=== PATIENT | male | born 1955 ===

== ENCOUNTER → 2024-03-24 06:48 | Outpatient (CLI) | payer OTHER ==
[2024-03-24 08:09] LABS: HEMATOCRIT 41.3 % (39.0-48.0); HEMOGLOBIN 13.6 g/dL (13-16.00); MEAN CELL VOLUME 85.9 fL (80.0-100.00); MEAN CORPUSCULAR HEMOGLOBIN 28.3 pg (27.00-32.0); MEAN CORPUSCULAR HGB CONC 32.9 g/dl (32.0-36.0); PLATELET COUNT 436 K/uL (150-450); RED BLOOD COUNT 4.81 M/uL (4.00-6.00); RED CELL DISTRIBUTION WIDTH 13.9 % (11.5-14.5)
[2024-03-24 09:34] LABS: % SATURACION 11.6 % (20-50); ALBUMIN 3.5 gm/dL (3.4-5.0); BILIRUBIN TOTAL 0.3 mg/dL (0.3-1.2); CALCIUM 9.3 mg/dL (8.5-10.1); CREATININE SERUM 0.87 mg/dL (0.70-1.30); FERRITIN 22.9 NG/ML (26-388); GFR 87.26; GLOBULINA 4.1 G/DL (2.4-3.5); POTASSIUM 4.41 mEq/L (3.5-5.1); TOTAL PROTEIN 7.6 gm/dL (6.4-8.2)
[2024-03-24 10:58] LABS: FOLIC ACID > 20.00 ng/ml (4.78-20)
[2024-03-24 11:23] LABS: MANUAL PLATELET COUNT 448
[2024-03-24 11:25] LABS: PLATELET ESTIMATE NORMAL (NORMAL)
[2024-03-25 13:06] LABS: hgb a 97.4 % (96.4-98.8); hgb a2 2.6 % (1.8-3.2); hgb f 0 % (0.0-2.0); hgb s 0 % (0.0)
[2024-03-27 09:07] LABS: g6pd quant 247 (127-427); rbc 4.86 x10E6/uL (4.14-5.80)
[2024-03-28 15:06] LABS: PARIETAL CELL ANTIBODIES 23.2 Units (0.0-20.0)
== END | disposition home or self-care (01) ==
LOC: LAB 06:48
PROVIDERS: ATTEND Internal Medicine Hematology & Oncology
DX: D75.838 Other thrombocytosis (principal); E78.2 Mixed hyperlipidemia; Z86.010 Personal history of colon polyps; D50.8 Other iron deficiency anemias; R79.9 Abnormal finding of blood chemistry, unspecified; I10 Essential (primary) hypertension; R74.02 Elevation of levels of lactic acid dehydrogenase [LDH]; K76.89 Other specified diseases of liver; D63.8 Anemia in other chronic diseases classified elsewhere; D51.0 Vitamin B12 deficiency anemia due to intrinsic factor deficiency

== ENCOUNTER 2024-10-20 07:22 | Outpatient (CLI) | payer OTHER | END 2024-10-20 07:24 | disposition home or self-care (01) | LOC: SONOGRAMA 07:22 | PROVIDERS: ATTEND Pathology Anatomic Pathology & Clinical Pathology | DX: E04.2 Nontoxic multinodular goiter (principal) ==

== ENCOUNTER → 2025-02-11 06:26 | Outpatient (CLI) | payer OTHER ==
[2025-02-11 07:19] LABS: URINE APPEARANCE Clear; URINE BILIRRUBIN Negative (NEGATIVE); URINE BLOOD Negative; URINE COLOR Yellow; URINE GLUCOSE Negative (NEGATIVE); URINE KETONE Trace (NEGATIVE); URINE LEUKOCYTE Negative; URINE NITRATE Negative; URINE PROTEIN Negative (NEGATIVE); URINE UROBILINOGEN 0.2 E.U./dl
[2025-02-11 07:24] LABS: URINE BACTERIA 8.3 uL (0.0-1933); URINE RBC 5.1 uL (0.0-20.8); URINE WBC 3.8 uL (0.0-23.2)
[2025-02-11 07:25] LABS: BASO % 0.7 % (0.1-1.2); EOS # 0.10 (0.04-0.54); EOS % 1.8 % (0.7-7.0); LYMPH # 1.36 (1.18-3.74); LYMPH % 24.3 % (19.3-53.1); MEAN PLATELET VOLUME 9.90 fl (9.4-12.4); MONO # 0.35 (0.24-0.82); MONO % 6.3 % (4.7-12.5); NEUT # 3.74 (1.56-6.13); NEUT % 66.7 % (34.0-71.1); RED CELL DISTRIBUTION WIDTH 12.7 % (11.6-14.4)
[2025-02-11 07:28] LABS: URINE CAST 0.14 uL (0.0-1.40); URINE EPITHELIAL CELLS 0.9 uL (0.0-38.8)
[2025-02-11 08:14] LABS: ALT/SGPT 31.0 U/L (12-78); AST/SGOT 15.0 U/L (15-37); BILIRUBIN TOTAL 0.46 mg/dL (0.3-1.2); BUN CREA RATIO 18.0 (7.0-25.0); CREATININE SERUM 0.98 mg/dL (0.70-1.30); FE 62.0 ug/dl (65-175); GFR 75.83; GLOBULINA 4.4 G/DL (2.4-3.5); GLUCOSE FASTING 123.0 mg/dL (65-100); LDH 139.0 U/L (87-241); OSMOLALITY SERUM 283.0 MOSM/KG (275-295); PROSTATIC SPECIFIC ANTIGEN 1.65 NG/ML (0.010-4.00); T4 FREE 1.04 NG/ML (0.76-1.46); TSH 1.0 uIU/mL (0.358-3.74)
[2025-02-11 11:30] LABS: FOLIC ACID > 20.00 ng/ml (4.78-20)
[2025-02-12 09:08] LABS: ANTI THYROID PEROXIDASE 14 IU/mL (0-34)
[2025-02-13 15:35] LABS: LYMPHOCYTE MAN 20.0 %; MONOCYTE MAN 6.0 %; NEUTROPHILS MAN 71.0 %
== END | disposition home or self-care (01) ==
LOC: LAB 06:26
PROVIDERS: ATTEND Internal Medicine Hematology & Oncology
DX: D51.1 Vitamin B12 deficiency anemia due to selective vitamin B12 malabsorption with proteinuria (principal); D75.838 Other thrombocytosis; E78.2 Mixed hyperlipidemia; Z86.0100 Personal history of colon polyps, unspecified; R16.0 Hepatomegaly, not elsewhere classified; E04.2 Nontoxic multinodular goiter; Z80.0 Family history of malignant neoplasm of digestive organs; D50.8 Other iron deficiency anemias; R79.9 Abnormal finding of blood chemistry, unspecified; I10 Essential (primary) hypertension; R74.02 Elevation of levels of lactic acid dehydrogenase [LDH]; K76.89 Other specified diseases of liver; E03.8 Other specified hypothyroidism; E06.3 Autoimmune thyroiditis; R97.0 Elevated carcinoembryonic antigen [CEA]; N39.0 Urinary tract infection, site not specified; N40.1 Benign prostatic hyperplasia with lower urinary tract symptoms

== ENCOUNTER → 2025-02-27 06:06 | Outpatient (CLI) | payer OTHER ==
[2025-02-27 06:53] LABS: BASO % 0.8 % (0.1-1.2); EOS # 0.12 (0.04-0.54); EOS % 2.0 % (0.7-7.0); LYMPH # 1.50 (1.18-3.74); LYMPH % 24.8 % (19.3-53.1); MEAN PLATELET VOLUME 9.40 fl (9.4-12.4); MONO # 0.42 (0.24-0.82); MONO % 6.9 % (4.7-12.5); NEUT # 3.95 (1.56-6.13); NEUT % 65.2 % (34.0-71.1); RED CELL DISTRIBUTION WIDTH 12.7 % (11.6-14.4)
[2025-02-27 07:40] LABS: ALT/SGPT 30.0 U/L (12-78); AST/SGOT 15.0 U/L (15-37); BILIRUBIN TOTAL 0.49 mg/dL (0.3-1.2); BUN CREA RATIO 24.0 (7.0-25.0); CREATININE SERUM 0.84 mg/dL (0.70-1.30); GFR 90.6; GLOBULINA 3.7 G/DL (2.4-3.5); GLUCOSE FASTING 104.0 mg/dL (65-100); LDH 140.0 U/L (87-241); OSMOLALITY SERUM 286.0 MOSM/KG (275-295)
== END | disposition home or self-care (01) ==
LOC: LAB 06:06
PROVIDERS: ATTEND Internal Medicine Hematology & Oncology
DX: D51.1 Vitamin B12 deficiency anemia due to selective vitamin B12 malabsorption with proteinuria (principal); D75.838 Other thrombocytosis; E78.2 Mixed hyperlipidemia; Z86.0100 Personal history of colon polyps, unspecified; R16.0 Hepatomegaly, not elsewhere classified; E04.2 Nontoxic multinodular goiter; Z80.0 Family history of malignant neoplasm of digestive organs; D50.8 Other iron deficiency anemias; I10 Essential (primary) hypertension; R74.02 Elevation of levels of lactic acid dehydrogenase [LDH]; K76.89 Other specified diseases of liver; R97.0 Elevated carcinoembryonic antigen [CEA]; R77.2 Abnormality of alphafetoprotein

== ENCOUNTER 2025-03-17 07:04 | Outpatient (CLI) | payer OTHER | END 2025-03-17 07:05 | disposition home or self-care (01) | LOC: TOM 07:04 | PROVIDERS: ATTEND Internal Medicine Hematology & Oncology | DX: R97.0 Elevated carcinoembryonic antigen [CEA] (principal); D51.1 Vitamin B12 deficiency anemia due to selective vitamin B12 malabsorption with proteinuria; D75.838 Other thrombocytosis; E78.2 Mixed hyperlipidemia; Z86.0100 Personal history of colon polyps, unspecified; R16.0 Hepatomegaly, not elsewhere classified; E04.2 Nontoxic multinodular goiter; Z80.0 Family history of malignant neoplasm of digestive organs | CPT/HCPCS: 71270; 74178; Q9965 ==